=== PATIENT | male | born 1985 | race African-American/Black ===

== ENCOUNTER 2019-04-09 13:55 | Emergency (ER) | payer SELFPAY ==
[2019-04-09] MEDS ORDERED: LORazepam INJ* 2 MG/ML 1 ML VIAL IV PUSH ONE (14:41)
[2019-04-09] MEDS ORDERED: Lorazepam PYXIS KEY PRN (14:41)
[2019-04-09] MEDS ORDERED: NS 0.9% 1000 ML** 1,000 ML IV ONE (14:41)
[2019-04-09] MEDS ORDERED: Lorazepam PYXIS KEY ONE (14:47)
[2019-04-09 15:14] LABS: ABS Lymphocytes 0.3 10^3/ul (1.0-4.8); ABS Monocytes 0.8 10^3/ul (0-0.8); ABS Neutrophils 5.7 10^3/ul (1.5-7.7); Eosinophil % 0.2 %; Hematocrit 38 % (42-52); Lymphocyte % 4.8 %; Mean Corpuscular HGB Conc 34 g/dL (31-36); Mean Corpuscular Hemoglobin 33 pg (27-31); Mean Corpuscular Volume 97 fL (80-94); Mean Platelet Volume 8.6 fL (7.4-10.4); Platelet Count 142 10^3/uL (150-450); Red Blood Count 3.94 10^6 /uL (4.18-5.48); Red Cell Distribution Width 14 % (10-15); White Blood Count 6.8 10^3/uL (3.5-10.8)
--- NOTE | 2019-04-09 15:29 | ED ---
Complex/Multi-Sys Presentation - HPI Summary HPI Summary: Patient is a 34 y/o M presenting to the ED for a chief complaint of seizure on 04/09/19. Patient was lifting boxes into an apartment when he had the seizure. Patient was confused upon waking which has since resolved. Patient denies seizure in the past. Patient denies myalgia, headache, vision changes, nausea, vomiting, or weakness on one side of the body. Patient had a beer on 04/09/19 and 4 beers on 04/08/19. Patient feels he is in alcohol withdrawal. Patient admits tobacco and alcohol use, but denies drug use. Patient denies any PMHx, PSHx, or any medications. Patient works at [employer]. - History Of Current Complaint Chief Complaint: EDSeizure Time Seen by Provider: 04/09/19 14:32 Hx Obtained From: Patient Onset/Duration: Sudden Onset, Resolved Timing: Minutes Severity Currently: Moderate Severity Initially: Moderate Associated Signs And Symptoms: Positive: Confusion - Resolved, Syncope - Seizure , Other - Negative change in vision. Negative: Weakness - On one side of body, Headache, Nausea, Vomiting - Allergies/Home Medications Allergies/Adverse Reactions: Allergies Allergy/AdvReac Type Severity Reaction Status Date / Time No Known Allergies Allergy Verified 02/04/13 19:48 Home Medications: Home Medications NK [No Home Medications Reported] 04/09/19 [History Confirmed 04/09/19] PMH/Surg Hx/FS Hx/Imm Hx Previously Healthy: Yes Endocrine/Hematology History: Denies: Hx Diabetes Cardiovascular History: Denies: Hx Hypercholesterolemia, Hx Hypertension Sensory History: Denies: Hx Contacts or Glasses, Hx Legally Blind, Hx Deafness Opthamlomology History: Denies: Hx Contacts or Glasses, Hx Legally Blind EENT History: Denies: Hx Deafness - Surgical History Surgical History: None Surgery Procedure, Year, and Place: None - Immunization History Immunizations Up to Date: Yes Infectious Disease History: No Infectious Disease History: Denies: Traveled Outside the [place] in Last 30 Days - Family History Known Family History: Negative: Hypertension, Diabetes - Social History Occupation: Unemployed Lives: Alone Alcohol Use: Daily Alcohol Amount: 1-2/daily beers Hx Substance Use: No Substance Use Type: Reports: None Hx Tobacco Use: Yes Smoking Status (MU): Heavy Every Day Tobacco Smoker Review of Systems Positive: Other - Negative changes in vision Negative: Vomiting, Nausea Negative: Myalgia Neurological: Other - Positive seizure and confusion Positive: Syncope - Seizure. Negative: Headache, Weakness - On one side of body , Slurred Speech All Other Systems Reviewed And Are Negative: Yes Physical Exam - Summary Physical Exam Summary: Constitutional: Well-developed, Well-nourished, Alert. (-) Distressed Skin: Warm, Dry HENT: Normocephalic; Atraumatic Eyes: Conjunctiva normal Neck: Musculoskeletal ROM normal neck. (-) JVD, (-) Stridor, (-) Tracheal deviation Cardio: Rhythm regular, rate normal, Heart sounds normal; Intact distal pulses. Radial pulses are 2+ and symmetric. (-) Murmur Pulmonary/Chest wall: Effort normal. (-) Respiratory distress, (-) Wheezes, (-) Rales Abd: Soft. (-) Tenderness, (-) Distension, (-) Guarding, (-) Rebound Musculoskeletal: (-) Edema Lymph: (-) Cervical adenopathy Neuro: Alert, Oriented x3, Strength normal, Cranial nerves II-XII are grossly intact. (-) Dysmetria, (-) Nystagmus, (-) Ataxia by finger to nose testing, (-) Sensory deficit. Psych: Mood and affect Normal Triage Information Reviewed: Yes Vital Signs On Initial Exam: Initial Vitals Temp Pulse Resp BP Pulse Ox 100.7 F 105 18 168/83 98 04/09/19 14:00 04/09/19 14:00 04/09/19 14:00 04/09/19 14:00 04/09/19 14:00 Vital Signs Reviewed: Yes Procedures - Sedation Patient Received Moderate/Deep Sedation with Procedure: No Diagnostics - Vital Signs Vital Signs Temp Pulse Resp BP Pulse Ox 04/09/19 14:47 20 04/09/19 14:00 100.7 F 105 18 168/83 98 - Laboratory Lab Results: Lab Results 04/09/19 Range/Units 15:08 WBC 6.8 (3.5-10.8) 10^3/uL RBC 3.94 L (4.18-5.48) 10^6 /uL Hgb 13.0 L (14.0-18.0) g/dL Hct 38 L (42-52) % MCV 97 H (80-94) fL MCH 33 H (27-31) pg MCHC 34 (31-36) g/dL RDW 14 (10-15) % Plt Count 142 L (150-450) 10^3/uL MPV 8.6 (7.4-10.4) fL Neut % (Auto) 83.2 % Lymph % (Auto) 4.8 % [place] % (Auto) 11.5 % Eos % (Auto) 0.2 % Baso % (Auto) 0.3 % Absolute Neuts (auto) 5.7 (1.5-7.7) 10^3/ul Absolute Lymphs (auto) 0.3 L (1.0-4.8) 10^3/ul Absolute Monos (auto) 0.8 (0-0.8) 10^3/ul Absolute Eos (auto) 0.0 (0-0.6) 10^3/ul Absolute Basos (auto) 0.0 (0-0.2) 10^3/ul Absolute Nucleated RBC 0.0 10^3/ul Nucleated RBC % 0.0 Result Diagrams: 04/09/19 15:08 04/09/19 15:08 Lab Statement: Any lab studies that have been ordered have been reviewed, and results considered in the medical decision making process. Complex Multi-Symp Course/Dx Course Of Treatment: Patient is here with a seizure likely due to alcohol withdrawal. Patient does drink on a daily basis with his last drink yesterday. Patient was neurologically intact upon arrival. Patient did have tremors with his hands outstretched and was tachycardic. Was asked rethinks Laurae Caltagirone he said yes. Patient is given Ativan with improvement in his symptoms. Patient was encouraged not to drink and was discharged. - Diagnoses Provider Diagnoses: Seizure, Alcohol withdrawal Discharge ED - Sign-Out/Discharge Documenting (check all that apply): Patient Departure - Discharge - Discharge Plan Condition: Stable Disposition: HOME Patient Education Materials: Alcohol Withdrawal (ED) Referrals: [facility] [Outside] Catrachito Rausch MD [Medical Doctor] - Additional Instructions: Do not drink alcohol or do drugs. Follow up with a neurologist in 1-3 days. Return to the Emergency Department for any new or worsening symptoms. - Billing Disposition and Condition Condition: STABLE Disposition: Home - Attestation Statements Document Initiated by Desmonde: Yes Documenting Scribe: Shirin Rico Provider For Whom Scribe is Documenting (Include Credential): Gopal Bowen MD Scribe Attestation: IShirin, scribed for Gopal Bowen MD on 04/09/19 at 2115. Scribe Documentation Reviewed: Yes Provider Attestation: The documentation as recorded by the Shirin lyon accurately reflects the service I personally performed and the decisions made by me, Gopal Bowen MD Status of Scribe Document: Viewed
[2019-04-09 15:36] LABS: ALT 41 U/L (7-52); AST 48 U/L (13-39); Albumin 4.4 g/dL (3.2-5.2); Albumin/Globulin Ratio 1.6 (1-3); Alkaline Phosphatase 46 U/L (34-104); Anion Gap 7 mmol/L (2-11); BUN/Creatinine Ratio 10.3 (8-20); Blood Urea Nitrogen 7 mg/dL (6-24); CO2 Carbon Dioxide 23 mmol/L (22-32); Calcium 9.2 mg/dL (8.6-10.3); Chloride 105 mmol/L (101-111); EGFR African American 162.5 (>60); EGFR Non-African American 134.3 (>60); Globulin 2.8 g/dL (2-4); Glucose 105 mg/dL (70-100); Magnesium 1.9 mg/dL (1.9-2.7); Potassium 3.9 mmol/L (3.5-5.0); Sodium 135 mmol/L (135-145); Total Protein 7.2 g/dL (6.4-8.9)
[2019-04-09 15:40] VITALS: BP 155/86
[2019-04-09 16:05] LABS: Alcohol < 10 mg/dL (<10)
== END 2019-04-09 15:40 | disposition home or self-care (01) ==
LOC: ED 13:55
DX: R56.9 Unspecified convulsions (principal); F10.239 Alcohol dependence with withdrawal, unspecified; F17.200 Nicotine dependence, unspecified, uncomplicated
CPT/HCPCS: 36415; 80053; 80320; 83735; 85025; 96361; 96374; 99282; G0480; J2060

== ENCOUNTER 2019-07-02 12:52 | Inpatient (IN) | payer SELFPAY ==
[2019-07-02] MEDS ORDERED: Midazolam* 1 MG/ML 5 ML VIAL (5 MG) ONE (15:11)
[2019-07-02] MEDS ORDERED: Diazepam INJ CARPUJECT* 5 MG/ML ONE (15:12)
[2019-07-02 15:14] LABS: ABS Basophils 0.1 10^3/ul (0-0.2); ABS Lymphocytes 0.4 10^3/ul (1.0-4.8); ABS Monocytes 1.3 10^3/ul (0-0.8); ABS Neutrophils 5.3 10^3/ul (1.5-7.7); Eosinophil % 0.2 %; Hematocrit 43 % (42-52); Hemoglobin 14.8 g/dL (14.0-18.0); Lymphocyte % 5.9 %; Mean Corpuscular HGB Conc 35 g/dL (31-36); Mean Corpuscular Hemoglobin 34 pg (27-31); Mean Corpuscular Volume 98 fL (80-94); Mean Platelet Volume 8.7 fL (7.4-10.4); Platelet Count 199 10^3/uL (150-450); Red Cell Distribution Width 14 % (10-15); White Blood Count 7.1 10^3/uL (3.5-10.8)
[2019-07-02] MEDS ORDERED: Diazepam INJ CARPUJECT* 5 MG/ML IM ONE (15:20)
[2019-07-02] MEDS ORDERED: Midazolam* 1 MG/ML 5 ML VIAL (5 MG) IV SLOW PU ONE (15:24)
[2019-07-02 15:35] LABS: Albumin/Globulin Ratio 1.5 (1-3); BUN/Creatinine Ratio 12.1 (8-20); EGFR African American 168.2 (>60); Globulin 3.3 g/dL (2-4); Potassium 3.9 mmol/L (3.5-5.0); Total Bilirubin 0.6 mg/dL (0.2-1.0); Total Protein 8.3 g/dL (6.4-8.9)
[2019-07-02] MEDS ORDERED: Thiamine INJ* 100 MG, Folic Acid IV* 1 MG, Multiple Vitamin IV ADULT* 10 ML in NS 0.9% ... IV ONE (15:44)
[2019-07-02] MEDS ORDERED: Thiamine INJ* 100 MG/ML 2 ML VIAL IM ONE (17:21)
[2019-07-02] MEDS ORDERED: Acetaminophen TAB* 325 MG PO PRN ×2 (17:21→18:01)
--- NOTE | 2019-07-02 17:21 | ED ---
Seizure - HPI Summary HPI Summary: This patient is a 34-year-old male with history of alcohol abuse presenting to the ED with a "drunken fall." Patient states he recalls nothing from last night , but drinks several beers and some tequila and believes he fell on his face. He does not recall falling on his face and denies any headache at this time. Per family however, patient drinks heavily every night and is concerned this morning was a seizure. He did have one seizure back in March and was seen here in the ED. At that time they were unaware if this was new onset seizures or alcohol-related seizures. Patient does not have health insurance and so did not follow up with neurology. He also has not been on any medication. He states he believes this is not alcohol related as he has had several days at a time without drinking any alcohol and has not had any evidence of seizure. Per girlfriend at bedside, states patient has been having insomnia and anxiety symptoms which have been present times several months to years. Patient denies any pain at this time. He takes no medications. He has no known allergies. He is otherwise healthy. - History Of Current Complaint Chief Complaint: EDFacialInjury Time Seen by Provider: 07/02/19 12:52 Hx Obtained From: Patient Onset/Duration: Sudden Onset Severity Of Seizure: Self-Limited Aggravating Factor(s): Alcohol Ingestion, Alcohol Withdrawal Alleviating Factor(s): Spontaneous Resolution Associated Signs And Symptoms: Anxiety - Risk Factors SAH Risk Factors: Negative Meningitis Risk Factors: Negative SDH Risk Factor: Male, Seizures - Allergies/Home Medications Allergies/Adverse Reactions: Allergies Allergy/AdvReac Type Severity Reaction Status Date / Time No Known Allergies Allergy Verified 02/04/13 19:48 PMH/Surg Hx/FS Hx/Imm Hx Previously Healthy: Yes Endocrine/Hematology History: Denies: Hx Diabetes Cardiovascular History: Denies: Hx Hypercholesterolemia, Hx Hypertension Sensory History: Denies: Hx Contacts or Glasses, Hx Legally Blind, Hx Deafness Opthamlomology History: Denies: Hx Contacts or Glasses, Hx Legally Blind - Surgical History Surgery Procedure, Year, and Place: None - Immunization History Hx Pertussis Vaccination: No Immunizations Up to Date: Yes Infectious Disease History: No Infectious Disease History: Denies: Traveled Outside the [place] in Last 30 Days - Family History Known Family History: Negative: Hypertension, Diabetes - Social History Occupation: Employed Full-time Lives: With Family Alcohol Use: Daily Alcohol Amount: 1-2/daily beers Hx Substance Use: No Substance Use Type: Reports: None Hx Tobacco Use: Yes Smoking Status (MU): Heavy Every Day Tobacco Smoker Review of Systems Negative: Fever, Chills, Fatigue, Skin Diaphoresis Negative: Palpitations, Chest Pain Negative: Shortness Of Breath, Cough Genitourinary: Negative Positive: no symptoms reported, see HPI Positive: Other - 3 lacerations Positive: Headache Positive: Anxious All Other Systems Reviewed And Are Negative: Yes Physical Exam Triage Information Reviewed: Yes Vital Signs On Initial Exam: Initial Vitals Pulse Pulse Ox 115 98 07/02/19 12:56 07/02/19 12:56 Vital Signs Reviewed: Yes Appearance: Positive: Well-Appearing, Well-Nourished Skin: Positive: Skin Color Reflects Adequate Perfusion, Other - laceration to the forehead and to the bridge of the nose, laceration to the inner lip Head/Face: Positive: Normal Head/Face Inspection Eyes: Positive: EOMI, Conjunctiva Clear Neck: Positive: No Lymphadenopathy Respiratory/Lung Sounds: Positive: Clear to Auscultation, Breath Sounds Present Cardiovascular: Positive: Pulses are Symmetrical in both Upper and Lower Extremities Musculoskeletal: Positive: Normal, Strength/ROM Intact Neurological: Positive: Sensory/Motor Intact, Alert, Oriented to Person Place, Time, Slurred Speech Psychiatric: Positive: Affect/Mood Appropriate AVPU Assessment: Alert Procedures - Sedation Patient Received Moderate/Deep Sedation with Procedure: No Diagnostics - Vital Signs Vital Signs Temp Pulse Resp BP Pulse Ox 07/02/19 13:00 118 98 07/02/19 12:58 99.5 F 119 23 192/100 98 07/02/19 12:56 115 98 - Laboratory Lab Results: Lab Results 07/02/19 07/02/19 Range/Units 14:56 14:56 WBC 7.1 (3.5-10.8) 10^3/uL RBC 4.40 (4.18-5.48) 10^6 /uL Hgb 14.8 (14.0-18.0) g/dL Hct 43 (42-52) % MCV 98 H (80-94) fL MCH 34 H (27-31) pg MCHC 35 (31-36) g/dL RDW 14 (10-15) % Plt Count 199 (150-450) 10^3/uL MPV 8.7 (7.4-10.4) fL Neut % (Auto) 74.9 % Lymph % (Auto) 5.9 % [place] % (Auto) 18.2 % Eos % (Auto) 0.2 % Baso % (Auto) 0.8 % Absolute Neuts (auto) 5.3 (1.5-7.7) 10^3/ul Absolute Lymphs (auto) 0.4 L (1.0-4.8) 10^3/ul Absolute Monos (auto) 1.3 H (0-0.8) 10^3/ul Absolute Eos (auto) 0.0 (0-0.6) 10^3/ul Absolute Basos (auto) 0.1 (0-0.2) 10^3/ul Absolute Nucleated RBC 0.0 10^3/ul Nucleated RBC % 0.0 Sodium 132 L (135-145) mmol/L Potassium 3.9 (3.5-5.0) mmol/L Chloride 97 L (101-111) mmol/L Carbon Dioxide 25 (22-32) mmol/L Anion Gap 10 (2-11) mmol/L BUN 8 (6-24) mg/dL Creatinine 0.66 L (0.67-1.17) mg/dL Est GFR ( Amer) 168.2 (>60) Est GFR (Non-Af Amer) 139.0 (>60) BUN/Creatinine Ratio 12.1 (8-20) Glucose 103 H (70-100) mg/dL Calcium 10.0 (8.6-10.3) mg/dL Magnesium 2.0 (1.9-2.7) mg/dL Total Bilirubin 0.60 (0.2-1.0) mg/dL AST 60 H (13-39) U/L ALT 78 H (7-52) U/L Alkaline Phosphatase 56 (34-104) U/L Total Protein 8.3 (6.4-8.9) g/dL Albumin 5.0 (3.2-5.2) g/dL Globulin 3.3 (2-4) g/dL Albumin/Globulin Ratio 1.5 (1-3) Serum Alcohol 19 H (<10) mg/dL Result Diagrams: 07/02/19 14:56 07/02/19 14:56 Lab Statement: Any lab studies that have been ordered have been reviewed, and results considered in the medical decision making process. Course/Dx - Course Course Of Treatment: During this course of treatment, the patient was initially treated for a possible fall from alcohol use. Patient has a 2.5 cm laceration to the left side of the forehead, a 1cm laceration to the L side of the nasal bridge and a .6cm laceration to the inner upper lip. Patient has no evidence of trauma to the body otherwise. Denies any headache or neck pain. Patient appears confused and states he is "still drunk." He states he recalls nothing from this morning and is unsure if he fell or had other trauma that he is unaware of. CT brain and maxillofacial were obtained, both were negative for any acute findings. Lacerations were cleansed well. Lidocaine without epi used as local anesthetic with good effect. 5, 5-0 proline sutures placed to the left side of the forehead, 2, 5-0 sutures placed to the lateral bridge of the nose. 3 dissolvable braided vicryl placed inside the lip to the subcutaneous fat with good closure. Family arrives at this time with concern for a seizure. Labs were drawn. While pending, pt actively has seizure with provider at bedside. O2 applied. 5mg versed given. Post-ictal x 20 minutes. Pt recovers well. Banana bag given. Rechecked sutures and all intact. Alcohol level 19. Discussed with Dr. Krishnamurthy recommending admission for safe detox. Will not start keppra at this time as this likely alcohol related. Pt agreeable to stay. Re-examination with no laceration to tongue. Patient otherwise well. Re-exam shows WAM at 4. Pt will be carefully monitored and placed on WAM protocol. SW called for health insurance information, etc. Discussed with Dr Bo who will admit for further evaluation and alcohol related seizures and detox. Tetanus UTD. - Diagnoses Differential Diagnosis/HQI/PQRI: Positive: Alcohol Abuse, Alcohol Withdrawal, Drug Withdrawal, Other - alcohol abuse, fall, seizures Provider Diagnoses: Alcohol withdrawal, Seizures - Physician Notifications Discussed Care of Patient With: Kenroy Krishnamurthy Instructed by Provider To: Admit As Inpatient Discharge ED - Sign-Out/Discharge Documenting (check all that apply): Patient Departure - Discharge Plan Condition: Fair Disposition: ADMITTED TO [facility] Referrals: No Primary Care Phys,NOPCP [Primary Care Provider] - - Billing Disposition and Condition Condition: FAIR Disposition: Admitted to [facility] - Attestation Statements Provider Attestation: I was available for consult. This patient was seen by the KORI. The patient was not presented to, seen by, or examined by me. Gopal Bowen MD
--- NOTE | 2019-07-02 20:17 | HP ---
CC: Dr. Krishnamurthy * HISTORY AND PHYSICAL: DATE OF ADMISSION: 07/02/19 PROVIDER: Batsheva Hogan NP PRIMARY CARE PROVIDER: None. ATTENDING PHYSICIAN WHILE IN THE HOSPITAL: Dr. Zenaida Salazar * (dictated by Batsheva Hogan NP). CHIEF COMPLAINT: 1. Fall. 2. Seizure. 3. Alcohol withdrawal. HISTORY OF PRESENT ILLNESS: Mr. Casas is a 34-year-old male with a past medical history significant for alcohol abuse, who presented to the emergency room with a drunken fall. The patient states he recalls nothing from the events of last night. The patient reports that he drank 9, 12-ounce cans of [place]. The patient reports that he could possibly have had a seizure, but is unsure. The patient reports the last thing he remembers is sitting on the couch between 11:30 and 12 p.m. last night with a [place] in his hand. The next thing he remembers is being in the ambulance on the way to the emergency room. According to the emergency room record, the family was concerned that this was an alcohol withdrawal seizure. The patient had a similar episode back in March. He was seen in the emergency room at that time he had the seizure, unaware if it was related to alcohol. The patient did not have any health insurance, so he did not follow up with Neurology. The patient has not been on any medications for any seizures. The patient states he believes this is not alcohol related as he can go several days at a time without drinking any alcohol and has not had any seizures. According to the emergency room record, the girlfriend reports the patient has had insomnia and anxiety and difficulty sleeping for approximately a year. The patient reports that he drinks Natty Daddy 16-ounce cans 4 to 5 of them daily. The patient reports that he starts drinking approximately 1 hour after waking. The patient reports that he drinks every day. He generally does not go out without drinking. He reports that he has been doing this for several years. While in the emergency room, the patient did have lacerations repaired to his head. He had a CT of the brain and maxillofacial that were negative for any acute findings. When family arrived, they were concerned for seizures. So, the lab work was drawn. While the lab work was pending, the patient had a seizure with the provider at the bedside. He was given 5 mg Versed. He was postictal for approximately 20 minutes and the case was discussed with Dr. Krishnamurthy. Due to the patient's seizure likely related to alcohol withdrawal, Hospital Medicine was asked to see and evaluate him for admission. PAST MEDICAL HISTORY: Alcohol abuse. PAST SURGICAL HISTORY: None. MEDICATIONS: Home medications: None. ALLERGIES: No known drug allergies. FAMILY HISTORY: Mother with abdominal aortic aneurysm and TIAs at the age of 42. No diabetes. Sister with skin cancer. SOCIAL HISTORY: The patient reports he smokes 3 to 4 cigarettes daily. He drinks Natty Daddy four to five 16-ounce cans of 8% alcohol daily, sometimes Tequila. No illicit drug use. The patient lives alone. Surrogate decision maker in the event he is unable to make his own decisions is his sister, Shanna. He is a full code. REVIEW OF SYSTEMS: He denies any recent illness, fever, chills, unintended weight loss, chest pain, edema, cough, hemoptysis or shortness of breath. No nausea, vomiting, diarrhea, abdominal pain, hematuria, dysuria. Denies any focal weakness, sensory loss, dysphagia, arthralgias, myalgias, rashes. He does have a laceration noted to his left eyebrow and his left forehead with dressing that is intact. Denies any psychosis or anxiety. PHYSICAL EXAMINATION GENERAL: At this time, Mr. Casas is alert and oriented. Resting on the stretcher in the emergency room. He is in no acute distress. VITAL SIGNS: Blood pressure 129/94, heart rate 99, respirations are 25, O2 saturation 98% on room air, temperature was 99.5. HEENT: Head is atraumatic, normocephalic. Eyes, EOMs are intact. Sclerae anicteric and not pale. Oral mucosa is moist. NECK: Supple. He has no C-spine tenderness. He is able to to move his head freely without any pain. LUNGS: Clear to auscultation bilaterally. No wheezes, rales, or rhonchi. CARDIAC: S1, S2. Regular rate and rhythm. No murmurs, rubs or gallops. ABDOMEN: Soft and nontender. Bowel sounds are present x4. NEUROLOGIC: He is awake, alert and oriented x3. Speech is clear. There is no gross focal deficit. SKIN: He does have a sutured laceration to his left eyebrow and left forehead. DIAGNOSTIC STUDIES/LAB DATA: WBCs are 7.1, RBCs 4.40, hemoglobin 14.8, hematocrit 43, platelet count 199. Sodium 132, potassium 3.9, chloride 97, carbon dioxide is 25, anion gap is 10, BUN is 8, creatinine 0.66, glucose 103, calcium 10.0, magnesium 2. Total bilirubin 0.60, ASTs were 60, ALTs were 78, serum alcohol was 19. He had a CT of the brain, no acute intracranial pathology. He had maxillofacial CT. No facial fracture. ASSESSMENT AND PLAN: Mr. Casas is a 34-year-old male with a past medical history significant for alcohol abuse, who presented to the emergency room after questionable alcohol withdrawal seizure and facial lacerations, noted to have a witnessed seizure in the emergency room. Due to the patient's withdrawal symptoms and seizures, Hospital Medicine was asked to admit to the hospital. The patient will be admitted inpatient for: 1. Alcohol abuse. The patient is likely having seizures related to alcohol withdrawal. He will be monitored on telemetry on [address] [place] [address] him on seizure precautions. He will be placed on WAM protocol with tapering Ativan and subsequent Ativan as needed for scoring on WAM. The patient is currently receiving a banana bag. I will continue him on folic acid, thiamine, and multivitamin. 2. Seizure. The patient did have a witnessed seizure in the emergency room. This is likely related to alcohol withdrawal. The patient will be placed on WAM protocol with tapering Ativan. I have spoken to Dr. Juan Luis Krishnamurthy from Neurology at this time, who has recommended an MRI of the brain and an EEG and not to place the patient on any antiseizure medications at this time and to treat his alcohol withdrawal symptoms. Should the patient have subsequent episodes of seizures, Dr. Krishnamurthy would like to be contacted. 3. Hyponatremia. The patient does have mild hyponatremia. I suspect this is related to his alcohol abuse. 4. Elevated liver functions. He does have mildly elevated liver functions. Again, I suspect this is related to his alcohol abuse. 3. FEN: He can have a regular diet. 4. Code status: He is a full code. 5. DVT prophylaxis: Encourage ambulation. 6. Disposition: The patient will be placed inpatient on [address]. TIME SPENT: Time spent on this admission was 60 minutes. Greater than half that time was spent at the bedside reviewing events leading thus far to his hospitalization, performing physical exam and reviewing my plan of care. I have discussed with my attending Dr. Zenaida Salazar, she is in agreement with my plan. BATSHEVA HOGAN, KWABENA [id number]/CPS #: [id number] [facility]ITALEstefania
[2019-07-02] MEDS: LORazepam TAB(*) 1 MG PO SCH ×3 (20:42→22:39)
[2019-07-02] MEDS ORDERED: cloNIDine TAB* 0.1 MG PO ONE (23:29)
[2019-07-03] MEDS: LORazepam TAB(*) 1 MG PO SCH ×3 (03:10→23:45)
[2019-07-03 06:43] LABS: Hematocrit 43 % (42-52); Mean Corpuscular HGB Conc 35 g/dL (31-36); Mean Corpuscular Hemoglobin 34 pg (27-31); Mean Corpuscular Volume 98 fL (80-94); Mean Platelet Volume 9.3 fL (7.4-10.4); Platelet Count 211 10^3/uL (150-450); Red Blood Count 4.38 10^6 /uL (4.18-5.48); Red Cell Distribution Width 14 % (10-15); White Blood Count 10.6 10^3/uL (3.5-10.8)
[2019-07-03 06:52] LABS: ABS Lymphocytes 0.9 10^3/ul (1.0-4.8); ABS Monocytes 1.8 10^3/ul (0-0.8); ABS Neutrophils 7.9 10^3/ul (1.5-7.7); Eosinophil % 0.2 %; Lymphocyte % 8.2 %; Nucleated Red Blood Cells % 0.1
[2019-07-03 07:16] LABS: BUN/Creatinine Ratio 11.1 (8-20); Calcium 9.9 mg/dL (8.6-10.3); EGFR African American 132.8 (>60); EGFR Non-African American 109.7 (>60); Potassium 4.5 mmol/L (3.5-5.0)
[2019-07-03] MEDS ORDERED: Folic Acid TAB* 1 MG PO SCH (09:00)
[2019-07-03] MEDS ORDERED: cloNIDine TAB* 0.1 MG PO SCH (09:00)
[2019-07-03] MEDS ORDERED: Thiamine TAB* 100 MG TAB PO SCH (09:00)
[2019-07-03] MEDS ORDERED: Influenza VAC *QUAD* 2019-20* 0.5 ML SYRINGE IM ONE (09:00)
[2019-07-03] MEDS ORDERED: Multivitamins/Minerals TAB PO SCH (09:00)
[2019-07-03] MEDS: Multivitamins/Minerals TAB PO SCH (09:45)
[2019-07-03] MEDS: Folic Acid TAB* 1 MG PO SCH (09:45)
[2019-07-03] MEDS: Thiamine TAB* 100 MG TAB PO SCH (09:46)
--- NOTE | 2019-07-03 11:39 | CONS ---
CONSULTATION REPORT: DATE OF CONSULTATION: 07/03/19 PRIMARY CARE PROVIDER: None. REASON FOR CONSULTATION: Seizures. HISTORY OF PRESENT ILLNESS: Mr. Casas is a 34-year-old gentleman with past medical history significant for heavy alcohol use, otherwise negative, who presents to the hospital yesterday after having a seizure at home, subsequently followed by a seizure in the ER. He has no recollection of the event yesterday and states he remembers waking up in the ambulance at one point, but was confused. He denies any tongue biting, any bladder or bowel incontinence, but did have some postictal confusion. He also fell and hit his face and has a large contusion on his left lip. The patient also reports a history of a seizure-like episode back in March 2019 around [facility]. At that point, he was helping a relative move when he "passed out." Both of these events were witnessed. The event in March 2019 is less well described, but the event yesterday he stood up and "went down" over a table and apparently there was some generalized tonic-clonic activity. In addition, there was reported generalized tonic-clonic activity in the ER. In the ER, he was given Versed 5 mg, was confused for about 20 minutes. Importantly, the patient notes a history of heavy alcohol use. He has been drinking "for a long time." He notes that at the time of the event in March 2019 as well as yesterday, he had been drinking heavily. He reports drinking at least a 6-pack a day. He denies any hard liquor. His girlfriend also reported that he had been having some insomnia for approximately a year and does not drink well. It was reported that he drinks 16-ounce cans of beer and he drinks a 6-pack of those, so he is drinking heavily. He said yesterday he had about 2 beers before he had the episode. He also notes that at the time of the episode in March 2019 he had stopped drinking for a couple of days so that he could "be strong to help his relative move." He has a mother with a history of a seizure at around the time of an abdominal aortic aneurysm and strokes, she . Also has a sister with a history of seizures in the past, but not treated and on no medication. The patient denies any history of trauma or issues , no history of severe head trauma, no history of meningitis, no history of febrile seizures and is only aware of these 2 events. He reports drinking for at least 2 years prior to today. The patient does note history of prior tremors and palpitations when he would stop drinking. PAST MEDICAL HISTORY: Includes alcohol use. PAST SURGICAL HISTORY: Negative. MEDICATIONS: He is not on any home medications. ALLERGIES: He has no known drug allergies. FAMILY HISTORY: Sister is noted with a history of seizures in the distant past , no medication, and mother with a seizure at the time of her abdominal aortic aneurysm and she at that time. SOCIAL HISTORY: He does smoke tobacco occasionally, 3 to 4 cigarettes daily. Drinks the 16-ounce cans of beer daily. He reported some tequila use to the ER doc, but denied any hard liquor use with me. He denies any cocaine or tobacco use or other illicit substances. He has a girlfriend who witnessed the seizure yesterday and a sister at the bedside today. REVIEW OF SYSTEMS: Review of systems in 14 organ systems as noted above. The patient denies any recent fevers, chills, nausea, vomiting, diarrhea, constipation. No recent shortness of breath, hemoptysis, hematochezia. No recent chest pain. No myalgias or arthralgias. No recent animal bites or tick bites. He has had no problems swallowing. He notes no problems with change of voice, no problems with focal numbness, tingling, or weakness in his body. No prior falls. Seizure yesterday. PHYSICAL EXAMINATION: Vital Signs: Temperature of 98.8, pulse 99 to 110, respiratory rate 16 to 20, O2 saturation 94%, blood pressure 128/79 to 132/84. The patient is a well-nourished, well-developed gentleman in no acute distress. He is sitting in his hospital bed with his sister at the bedside. He is well dressed, well groomed. HEENT: He has a large laceration over the left forehead repaired and a lip laceration on the left. Sclerae are anicteric. Mucous membranes are moist. Oropharynx is clear. He has good dentition. Neck is supple. No thyromegaly. No carotid bruits. Chest: Clear to auscultation bilaterally. Cardiovascular: Tachycardic, regular rhythm. Abdomen is nontender. Extremities: No clubbing, cyanosis, or edema. Skin is warm and dry. Neurologic Exam: He is awake, alert x3. This morning, his speech is fluent. There is no dysarthria. Repetition is intact. Recall is somewhat impaired around the time of the seizure yesterday. Vocabulary is intact. Mood is dysthymic. Affect mood congruent. Cranial Nerves: Pupils are equal and round and reactive to light and accommodation. Extraocular muscles are intact. There is no nystagmus appreciated. No diplopia appreciated. Visual byrne are full to confrontation. Facial sensation is intact to light touch and pinprick. Face is symmetric with some swelling in the left lip. Hearing is intact bilaterally. Palate raises symmetrically. Tongue is midline. Motor Exam: He is moving all extremities antigravity, no drift. His strength is good 5/5 throughout. There is no atrophy. Tone and bulk both normal. Sensation is intact to light touch and pinprick throughout. No focal deficits. DTRs were 2+ and symmetric in the upper and lower extremities as well as withdrawal Babinski's bilaterally. [id number] and rapid alternating movements are intact. There is no appreciable tremor with intention, posture, or at rest. He has been ambulating without difficulty. DIAGNOSTIC STUDIES/LAB DATA: Includes white count of 10.6, absolute neutrophils of 7.9. Chemistry: Creatinine of 0.66, sodium of 132 to 135 this morning, AST of 60, ALT of 78, serum alcohol yesterday was 19. He had an MRI of the brain, I did review the results. Reading is as follows: Impression: 1. No acute intracranial abnormality. 2. 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 ASSESSMENT AND PLAN: Mr. Casas is a 34-year-old gentleman with no significant past medical history other than heavy alcohol use for years. He has had 2 episodes, which are consistent with seizures, one in March 2019 and then the episode yesterday. Semiology is consistent with generalized tonic-colonic seizure. In the ER, received Versed at the postictal state, no tongue biting, no bladder or bowel incontinence. The patient does drink heavily, reports drinking at least five to six 16-ounce beers a day and reported some hard liquor use to the ER doctor, although he denies that with me. His alcohol level yesterday was 19 and he did report drinking heavily the day before his event yesterday. He only had 2 beers at the time of his seizure. In March 2019, he also reports that he had been off of alcohol for several days to help with a move. He also reports a history of having tremors and palpitations when he did not drink, but no prior withdrawal seizures. At this point, my suspicion is that he is suffering from withdrawal seizures, that these were provoked. I would not treat with medications at this time, although an EEG is pending. If that shows any seizure like or epileptiform potentials, we will reconsider, but for now I would not treat with any medication. He had a mild Dandy- Walker like abnormality on his MRI, but I do not think it is contributing to any of his seizures. He has no other symptoms and has been healthy with good developmental history. We had a very long discussion about his alcohol use. I told him that if he continues to drink, he is likely to have another seizure and this could result ultimately in if he is not careful. I did tell him to avoid heights, avoid heavy machinery, to avoid swimming alone, to avoid baths and only take showers, to stay away from open flames and he is aware that he is not able to drive at this point. I discussed the fact that in [facility] the restrictions can be up to a year and that he will need to follow up with me to fill out the appropriate paperwork. Most importantly, we discussed provoked seizures. I told him in no uncertain terms that should he continue to drink, he will likely have seizures again. For now, I would continue him on his current medications. He is on clonidine 1 mg p.o. t.i.d. for blood pressure control. He is on folic acid and thiamine as well as banana bag. He is getting scheduled lorazepam as well as p.r.n. lorazepam and will be following [facility] protocol. At one point, he asked me if he could stop drinking slowly and I told him that this was his detox during the hospitalization and once he is detoxed during his hospitalization he will need to stay away from alcohol altogether. I advised that he should seek treatment program. His family at the bedside is very concerned and plans to help him. I will sign off for now, but if the EEG shows any abnormalities, please let me know, otherwise plan to see him back as an outpatient. Thank you for the opportunity to participate in the care of this very interesting patient. [id number]/[facility] #: [id number] [place]
--- NOTE | 2019-07-03 17:17 | PN ---
Subjective Date of Service: 07/03/19 Interval History: HOSPITALIST PROGRESS NOTE Patient seen and examined at bedside. Care reviewed and d/w Heena Morel RN. He is feeling better this morning, surrounded by many family members. He denies S[place], N/V. Still has some tremors, but less intense than yesterday. Family History: Unchanged from Admission Social History: Unchanged from Admission Past Medical History: Unchanged from Admission Objective Active Medications: Acetaminophen (Tylenol Tab*) 650 mg PO Q4H PRN PRN Reason: MILD PAIN or TEMP > 100.4 Folic Acid (Folvite Tab*) 1 mg PO DAILY [facility] Last Admin: 07/03/19 09:45 Dose: 1 mg Lorazepam (Ativan Tab(*)) 0 - 6 mg PO .PER [facility] PROTOCOL [facility]; Protocol Last Admin: 07/02/19 22:39 Dose: 4 mg Lorazepam (Ativan Tab(*)) 2 mg PO Q12H [facility]; Taper Stop: 07/05/19 14:59 Last Admin: 07/03/19 11:23 Dose: 2 mg Multivitamins/Minerals (Theragran/Minerals Tab*) 1 tab PO DAILY [facility] Last Admin: 07/03/19 09:45 Dose: 1 tab Thiamine HCl (Vitamin B-1 Tab*) 100 mg PO DAILY [facility] Last Admin: 07/03/19 09:46 Dose: 100 mg Vital Signs - 8 hr 07/03/19 07/03/19 07/03/19 11:00 11:15 11:23 Temperature 98.9 F Pulse Rate 105 Respiratory 18 20 18 Rate Blood Pressure 133/85 (mmHg) O2 Sat by Pulse 100 Oximetry 07/03/19 07/03/19 07/03/19 13:28 15:00 15:15 Temperature 98.5 F Pulse Rate 98 Respiratory 20 20 20 Rate Blood Pressure 129/78 (mmHg) O2 Sat by Pulse 100 Oximetry Oxygen Devices in Use Now: None Appearance: Young gentleman sitting up in bed in NAD Eyes: No Scleral Icterus, PERRLA Ears/Nose/Mouth/Throat: Mucous Membranes Moist, - - Multiple small facial lacerations Neck: Trachea Midline Respiratory: Symmetrical Chest Expansion and Respiratory Effort, Clear to Auscultation Cardiovascular: NL Sounds; No Murmurs; No JVD, RRR Abdominal: NL Sounds; No Tenderness; No Distention Extremities: No Edema Neurological: Alert and Oriented x 3, NL Muscle Strength and Tone Result Diagrams: 07/03/19 05:53 07/03/19 05:53 Assess/Plan/Problems-Billing Assessment: Mr Casas is a 34yo M with PMH of ETOH abuse, who presented to ED after a seizure at home; had another seizure in the ED, suspected to be ETOH withdrawal seizure. - Patient Problems (1) Alcohol withdrawal Comment: - Patient drinks 4-5 16oz beers/day, plus tequila shots. - Had a seizure in March thought to be secondary to withdrawal, but he unfortunately continued to drink. - Continue WAM protocol and Ativan taper. - Lengthy conversation with patient and family members at bedside - my recommendation is for inpatient rehab after he completes his detox. - SW consult requested. (2) Seizure Comment: - Recurrent, but in the setting of ETOH withdrawal. - Neuro input appreciated - CT and MRI brain reviewed. EEG showed benzodiazepine effects but no epileptiform discharges. As long as he doesn't have further recurrence, would not recommend antiepileptic drugs for now. - Seizure precautions. (3) Hyponatremia Comment: - Secondary to ETOH - resolved. (4) DVT prophylaxis Comment: - SCD. (5) Full code status Status and Disposition: Inpatient. Sisters, nieces, daughter and SO updated at bedside.
--- NOTE | 2019-07-03 22:08 | EEG ---
ELECTROENCEPHALOGRAPHY: DATE OF STUDY: 07/03/19 REFERRING PROVIDER: Batsheva Hogan NP LOCATION: He is an inpatient in room 407. CLINICAL PROBLEM: Recent episodes of seizures. History of alcohol abuse disorder. MEDICATIONS: Include lorazepam and vitamins. REPORT: This 19-channel EEG is remarkable for abundant diffuse beta-rhythms. The patient is clinically awake. Activation procedures are not attempted. Sleep stages are not recognized. There are no clinical events. There are no focal, lateralized, or epileptiform abnormalities. CLINICAL IMPRESSION: Abnormal EEG due to excessive beta rhythms consistent with benzodiazepine drug effect. There are no epileptiform features to this recording. [id number]/[facility] #: [id number] [facility]
[2019-07-04] MEDS: Thiamine TAB* 100 MG TAB PO SCH (07:54)
[2019-07-04] MEDS: Folic Acid TAB* 1 MG PO SCH (07:54)
[2019-07-04] MEDS: Multivitamins/Minerals TAB PO SCH (07:55)
[2019-07-04] MEDS: LORazepam TAB(*) 1 MG PO SCH ×2 (11:34→23:29)
--- NOTE | 2019-07-04 16:02 | PN ---
Subjective Date of Service: 07/04/19 Interval History: HOSPITALIST PROGRESS NOTE Patient seen and examined at bedside. Care reviewed and d/w Lala Ramirez RN. He feels better today, in good spirits. He feels steadier on his feet, tremors are less intense. No further seizures. Family History: Unchanged from Admission Social History: Unchanged from Admission Past Medical History: Unchanged from Admission Objective Active Medications: Acetaminophen (Tylenol Tab*) 650 mg PO Q4H PRN PRN Reason: MILD PAIN or TEMP > 100.4 Folic Acid (Folvite Tab*) 1 mg PO DAILY [facility] Last Admin: 07/04/19 07:54 Dose: 1 mg Lorazepam (Ativan Tab(*)) 0 - 6 mg PO .PER [facility] PROTOCOL [facility]; Protocol Last Admin: 07/02/19 22:39 Dose: 4 mg Lorazepam (Ativan Tab(*)) 2 mg PO Q12H [facility]; Taper Stop: 07/05/19 14:59 Last Admin: 07/04/19 11:34 Dose: 2 mg Multivitamins/Minerals (Theragran/Minerals Tab*) 1 tab PO DAILY [facility] Last Admin: 07/04/19 07:55 Dose: 1 tab Thiamine HCl (Vitamin B-1 Tab*) 100 mg PO DAILY [facility] Last Admin: 07/04/19 07:54 Dose: 100 mg Vital Signs - 8 hr 07/04/19 07/04/19 07/04/19 09:15 11:34 12:45 Temperature 97.4 F 98.4 F Pulse Rate 92 103 Respiratory 18 18 14 Rate Blood Pressure 130/83 143/87 (mmHg) O2 Sat by Pulse 99 100 Oximetry Oxygen Devices in Use Now: None Appearance: Pleasant young gentleman sitting up in bed in NAD. Eyes: No Scleral Icterus Ears/Nose/Mouth/Throat: Mucous Membranes Moist Neck: Trachea Midline Respiratory: Symmetrical Chest Expansion and Respiratory Effort, Clear to Auscultation Cardiovascular: NL Sounds; No Murmurs; No JVD, RRR Abdominal: NL Sounds; No Tenderness; No Distention Neurological: Alert and Oriented x 3, NL Muscle Strength and Tone Result Diagrams: 07/03/19 05:53 07/03/19 05:53 Assess/Plan/Problems-Billing Assessment: Mr Casas is a 34yo M with PMH of ETOH abuse, who presented to ED after a seizure at home; had another seizure in the ED, suspected to be ETOH withdrawal seizure. - Patient Problems (1) Alcohol withdrawal Comment: - Patient drinks 4-5 16oz beers/day, plus tequila shots. - Had a seizure in March thought to be secondary to withdrawal, but he unfortunately continued to drink. - Continue WAM protocol and Ativan taper. - Lengthy conversation with patient and family members at bedside - my recommendation is for inpatient rehab after he completes his detox. - SW consult requested. (2) Seizure Comment: - Recurrent, but in the setting of ETOH withdrawal. - Neuro input appreciated - CT and MRI brain reviewed. EEG showed benzodiazepine effects but no epileptiform discharges. As long as he doesn't have further recurrence, would not recommend antiepileptic drugs for now. - Seizure precautions. (3) Hyponatremia Comment: - Secondary to ETOH - resolved. (4) DVT prophylaxis Comment: - SCD. (5) Full code status Status and Disposition: Inpatient. Father updated at bedside.
[2019-07-05] MEDS: Multivitamins/Minerals TAB PO SCH (09:05)
[2019-07-05] MEDS: Thiamine TAB* 100 MG TAB PO SCH (09:05)
[2019-07-05] MEDS: Folic Acid TAB* 1 MG PO SCH (09:05)
[2019-07-05] MEDS: LORazepam TAB(*) 1 MG PO SCH (11:23)
--- NOTE | 2019-07-05 15:33 | PN ---
Subjective Date of Service: 07/05/19 Interval History: HOSPITALIST PROGRESS NOTE Patient seen and examined at bedside. Care reviewed and d/w Lala Ramirez RN. He is in good spirits today. Offers no complaints and optimistic about going to rehab. Family History: Unchanged from Admission Social History: Unchanged from Admission Past Medical History: Unchanged from Admission Objective Active Medications: Acetaminophen (Tylenol Tab*) 650 mg PO Q4H PRN PRN Reason: MILD PAIN or TEMP > 100.4 Folic Acid (Folvite Tab*) 1 mg PO DAILY [facility] Last Admin: 07/05/19 09:05 Dose: 1 mg Lorazepam (Ativan Tab(*)) 0 - 6 mg PO .PER [facility] PROTOCOL [facility]; Protocol Last Admin: 07/02/19 22:39 Dose: 4 mg Multivitamins/Minerals (Theragran/Minerals Tab*) 1 tab PO DAILY [facility] Last Admin: 07/05/19 09:05 Dose: 1 tab Thiamine HCl (Vitamin B-1 Tab*) 100 mg PO DAILY [facility] Last Admin: 07/05/19 09:05 Dose: 100 mg Vital Signs - 8 hr 07/05/19 07/05/19 07/05/19 08:00 11:15 11:23 Temperature 97.8 F Pulse Rate 87 Respiratory 18 18 18 Rate Blood Pressure 147/89 (mmHg) O2 Sat by Pulse 100 Oximetry Oxygen Devices in Use Now: None Appearance: Pleasant young gentleman sitting up in bed in NAD Eyes: No Scleral Icterus Ears/Nose/Mouth/Throat: Mucous Membranes Moist Neck: Trachea Midline Respiratory: Symmetrical Chest Expansion and Respiratory Effort, Clear to Auscultation Cardiovascular: NL Sounds; No Murmurs; No JVD, RRR Abdominal: NL Sounds; No Tenderness; No Distention Neurological: Alert and Oriented x 3, NL Muscle Strength and Tone Result Diagrams: 07/03/19 05:53 07/03/19 05:53 Assess/Plan/Problems-Billing Assessment: Mr Casas is a 34yo M with PMH of ETOH abuse, who presented to ED after a seizure at home; had another seizure in the ED, suspected to be ETOH withdrawal seizure. - Patient Problems (1) Alcohol withdrawal Comment: - Patient drinks 4-5 16oz beers/day, plus tequila shots. - Had a seizure in March thought to be secondary to withdrawal, but he unfortunately continued to drink. - Continue WAM protocol and Ativan taper. - Lengthy conversation with patient and family members at bedside - my recommendation is for inpatient rehab after he completes his detox. - SW consult requested. (2) Seizure Comment: - Recurrent, but in the setting of ETOH withdrawal. - Neuro input appreciated - CT and MRI brain reviewed. EEG showed benzodiazepine effects but no epileptiform discharges. As long as he doesn't have further recurrence, would not recommend antiepileptic drugs for now. - Seizure precautions. (3) Hyponatremia Comment: - Secondary to ETOH - resolved. (4) DVT prophylaxis Comment: - SCD. (5) Full code status Status and Disposition: Inpatient. Anticipate d/c in AM if rehab bed available.
[2019-07-05] MEDS ORDERED: cloNIDine TAB* 0.1 MG PO ONE (16:46)
--- NOTE | 2019-07-05 21:47 | DS ---
CC: Dr. Jorje Kaba; Dr. Kathy Whitman at the [facility]; Dr. Krishnamurthy * DISCHARGE SUMMARY: DATE OF ADMISSION: 07/02/19 ANTICIPATED DATE OF DISCHARGE: 07/06/19 DISCHARGE DIAGNOSIS: Alcohol withdrawal seizure. MEDICATION LIST: 1. Acetaminophen 650 mg p.o. q.4 hours p.r.n. pain or fever. 2. Folic acid 1 mg p.o. daily. 3. Multivitamin 1 tablet p.o. daily. 4. Thiamine 100 mg p.o. daily. HOSPITAL COURSE: Mr. Casas is a 34-year-old male with a past medical history of alcohol abuse who presented to the emergency room on 07/02/19 after having a fall that was later on clarified to being a witnessed seizure. He sustained facial ulcerations, and while in the emergency room, he had another seizure. The patient had had a prior ED visit in March with a similar episode. In the emergency room, he had a CT of the brain without contrast that showed no acute intracranial pathology. Maxillofacial CT showed no facial fracture and the patient was admitted for further workup. There was concern that maybe the patient had a primary epilepsy or he was having a recurrent alcohol withdrawal seizure. He was seen in consultation by Neurology (Dr. Krishnamurthy), who recommended an MRI of the brain and EEG for workup completion. 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 EEG was read as abnormal EEG due to excessive beta rhythms consistent with benzodiazepine drug effect, but no epileptiform features to this recording. Dr. Krishnamurthy's impression was that the patient's seizure were likely withdrawal related. He felt that the mild Dandy-Walker like abnormality on his MRI is not contributing to any of his seizures. He received education about seizure restrictions including avoidance of heights; avoidance of heavy machinery;to avoid swimming alone, baths, and to only take showers; stay away from open flames; and he made the patient aware that he is not able to drive at this point. Dr. Krishnamurthy was also in agreement with the recommendation for rehab in a facility after the patient completing his detox in the hospital. He will follow up the patient as outpatient after he completes his inpatient rehab program. The patient had no further seizures while in the hospital and he completed his Ativan taper. His withdrawal appears to be resolved at this time and he is optimistic and interested in going to inpatient rehab. No facilities are available at this time, but as they become available, this discharge summary will be updated. PHYSICAL EXAMINATION: Vital Signs: Temperature 97.8, heart rate 87, respiratory rate 18, oxygen saturation 100% on room air, blood pressure is 147/ 89. General: The patient is a pleasant young gentleman, sitting up in bed, in no acute distress. CVS: Normal S1, S2, regular rate and rhythm. Chest: Breath sounds present bilaterally with no added sounds. Abdomen is soft. Bowel sounds are present. Extremities: No edema. Neuro: He is alert and oriented x3. Able to move all 4 extremities. DIET: Regular diet. ACTIVITY: As tolerated. DISPOSITION: To inpatient rehab facility. STATUS WHILE IN THE HOSPITAL: Inpatient. CONDITION AT THE TIME OF DISCHARGE: Fair. Please keep in mind, this is a summarized version of this patient's hospital stay. If you need more information, please feel free to call me at [phone] or please obtain full medical records. TIME SPENT: Approximately 45 minutes was spent to complete this discharge. [id number]/[facility] #: [id number] [facility]
[2019-07-06] MEDS: Thiamine TAB* 100 MG TAB PO SCH (07:42)
[2019-07-06] MEDS: Multivitamins/Minerals TAB PO SCH (07:42)
[2019-07-06] MEDS: Folic Acid TAB* 1 MG PO SCH (07:42)
--- NOTE | 2019-07-06 12:54 | PN ---
Subjective Date of Service: 07/06/19 Interval History: No c/o except suture on lipio bothering him. Slept well. Family History: Unchanged from Admission Social History: Unchanged from Admission Past Medical History: Unchanged from Admission Objective Active Medications: Acetaminophen (Tylenol Tab*) 650 mg PO Q4H PRN PRN Reason: MILD PAIN or TEMP > 100.4 Chlordiazepoxide (Librium Cap*) 25 mg PO BID [facility] Folic Acid (Folvite Tab*) 1 mg PO DAILY [facility] Last Admin: 07/06/19 07:42 Dose: 1 mg Multivitamins/Minerals (Theragran/Minerals Tab*) 1 tab PO DAILY [facility] Last Admin: 07/06/19 07:42 Dose: 1 tab Thiamine HCl (Vitamin B-1 Tab*) 100 mg PO DAILY [facility] Last Admin: 07/06/19 07:42 Dose: 100 mg Vital Signs - 8 hr 07/06/19 07/06/19 07/06/19 07:15 07:53 08:00 Temperature 97.5 F Pulse Rate 80 Respiratory 16 16 16 Rate Blood Pressure 146/92 (mmHg) O2 Sat by Pulse 100 Oximetry 07/06/19 11:15 Temperature 97.6 F Pulse Rate 76 Respiratory 18 Rate Blood Pressure 153/88 (mmHg) O2 Sat by Pulse 100 Oximetry Oxygen Devices in Use Now: None Appearance: Alert, sitting on the edge of his bed. In good spirits. Looks comfortable. Eyes: No Scleral Icterus Extremities: No Edema, No Clubbing, Cyanosis, - Skin: No Rash or Ulcers, No Nodules or Sclerosis, - - Suture line L forehead. Suture inside L upper lip. Neurological: Alert and Oriented x 3, NL Sensation - no tremor. Result Diagrams: 07/03/19 05:53 07/03/19 05:53 Additional Lab and Data: Lab Results 07/02/19 07/02/19 Range/Units 14:56 14:56 WBC 7.1 (3.5-10.8) 10^3/uL RBC 4.40 (4.18-5.48) 10^6 /uL Hgb 14.8 (14.0-18.0) g/dL Hct 43 (42-52) % MCV 98 H (80-94) fL MCH 34 H (27-31) pg MCHC 35 (31-36) g/dL RDW 14 (10-15) % Plt Count 199 (150-450) 10^3/uL MPV 8.7 (7.4-10.4) fL Neut % (Auto) 74.9 % Lymph % (Auto) 5.9 % [place] % (Auto) 18.2 % Eos % (Auto) 0.2 % Baso % (Auto) 0.8 % Absolute Neuts (auto) 5.3 (1.5-7.7) 10^3/ul Absolute Lymphs (auto) 0.4 L (1.0-4.8) 10^3/ul Absolute Monos (auto) 1.3 H (0-0.8) 10^3/ul Absolute Eos (auto) 0.0 (0-0.6) 10^3/ul Absolute Basos (auto) 0.1 (0-0.2) 10^3/ul Absolute Nucleated RBC 0.0 10^3/ul Nucleated RBC % 0.0 Sodium 132 L (135-145) mmol/L Potassium 3.9 (3.5-5.0) mmol/L Chloride 97 L (101-111) mmol/L Carbon Dioxide 25 (22-32) mmol/L Anion Gap 10 (2-11) mmol/L BUN 8 (6-24) mg/dL Creatinine 0.66 L (0.67-1.17) mg/dL Est GFR ( Amer) 168.2 (>60) Est GFR (Non-Af Amer) 139.0 (>60) BUN/Creatinine Ratio 12.1 (8-20) Glucose 103 H (70-100) mg/dL Calcium 10.0 (8.6-10.3) mg/dL Magnesium 2.0 (1.9-2.7) mg/dL Total Bilirubin 0.60 (0.2-1.0) mg/dL AST 60 H (13-39) U/L ALT 78 H (7-52) U/L Alkaline Phosphatase 56 (34-104) U/L Total Protein 8.3 (6.4-8.9) g/dL Albumin 5.0 (3.2-5.2) g/dL Globulin 3.3 (2-4) g/dL Albumin/Globulin Ratio 1.5 (1-3) Serum Alcohol 19 H (<10) mg/dL Assess/Plan/Problems-Billing Assessment: Mr Casas is a 34yo M with PMH of ETOH abuse, who presented to ED after a seizure at home; had another seizure in the ED, suspected to be ETOH withdrawal seizure. - Patient Problems (1) Alcohol withdrawal Current Visit: Yes Status: Acute Code(s): F10.239 - ALCOHOL DEPENDENCE WITH WITHDRAWAL, UNSPECIFIED SNOMED Code(s): 217264528 Comment: - Patient drinks 4-5 16oz beers/day, plus tequila shots. - Had a seizure in March thought to be secondary to withdrawal, but he unfortunately continued to drink. Seizure observed in ED 07/02/19. Awaiting bed for inpatient rehab after he completes his detox. - SW consult appreciated. (2) Seizure Current Visit: Yes Status: Acute Code(s): R56.9 - UNSPECIFIED CONVULSIONS SNOMED Code(s): 32604527 Comment: - Recurrent, but in the setting of ETOH withdrawal. - Neuro input appreciated - CT and MRI brain reviewed. EEG showed benzodiazepine effects but no epileptiform discharges. As long as he doesn't have further recurrence, would not recommend antiepileptic drugs for now. - Seizure precautions. Chlordiazepoxide plan ? only 3 doses to ensure seizure- free detox period. (3) Alcoholic liver damage Current Visit: Yes Status: Acute Code(s): K70.9 - ALCOHOLIC LIVER DISEASE, UNSPECIFIED SNOMED Code(s): 80316429 Comment: Repeat LFT's 07/07/19. Status and Disposition: Inpatient. Anticipate d/c in AM if rehab bed available.
[2019-07-06] MEDS: chlordiazePOXIDE CAP* 25 MG PO SCH ×2 (12:57→21:39)
[2019-07-07 06:56] LABS: Albumin 4.6 g/dL (3.2-5.2); Albumin/Globulin Ratio 1.3 (1-3); Globulin 3.5 g/dL (2-4); Indirect Bilirubin 0.6 mg/dL (0.3-1.0); Total Bilirubin 0.8 mg/dL (0.2-1.0); Total Protein 8.1 g/dL (6.4-8.9)
[2019-07-07] MEDS: chlordiazePOXIDE CAP* 25 MG PO SCH ×2 (08:56→21:16)
[2019-07-07] MEDS: Multivitamins/Minerals TAB PO SCH (08:56)
[2019-07-07] MEDS: Folic Acid TAB* 1 MG PO SCH (08:56)
[2019-07-07] MEDS: Thiamine TAB* 100 MG TAB PO SCH (08:57)
--- NOTE | 2019-07-07 09:28 | PN ---
Subjective Date of Service: 07/07/19 Interval History: No c/o. Family History: Unchanged from Admission Social History: Unchanged from Admission Past Medical History: Unchanged from Admission Objective Active Medications: Acetaminophen (Tylenol Tab*) 650 mg PO Q4H PRN PRN Reason: MILD PAIN or TEMP > 100.4 Chlordiazepoxide (Librium Cap*) [address] [facility] Last Admin: 07/07/19 08:56 Dose: 25 mg Folic Acid (Folvite Tab*) [address] [facility] Last Admin: 07/07/19 08:56 Dose: 1 mg Multivitamins/Minerals (Theragran/Minerals Tab*) [address] [facility] Last Admin: 07/07/19 08:56 Dose: 1 tab Thiamine HCl (Vitamin B-1 Tab*) [address] [facility] Last Admin: 07/07/19 08:57 Dose: 100 mg Vital Signs - 8 hr 07/07/19 07/07/19 07/07/19 02:53 07:15 08:56 Temperature 97.6 F 98.2 F Pulse Rate 65 70 Respiratory 16 20 18 Rate Blood Pressure 140/93 151/92 (mmHg) O2 Sat by Pulse 100 100 Oximetry Oxygen Devices in Use Now: None Appearance: Alert, walks freely in his room. In good spirits, looks comfortable. Extremities: No Edema, No Clubbing, Cyanosis, - Skin: No Rash or Ulcers, No Nodules or Sclerosis, - Neurological: Alert and Oriented x 3, NL Sensation - No tremor, NL Gait Result Diagrams: 07/03/19 05:53 07/03/19 05:53 Additional Lab and Data: Lab Results 07/02/19 07/02/19 Range/Units 14:56 14:56 WBC 7.1 (3.5-10.8) 10^3/uL RBC 4.40 (4.18-5.48) 10^6 /uL Hgb 14.8 (14.0-18.0) g/dL Hct 43 (42-52) % MCV 98 H (80-94) fL MCH 34 H (27-31) pg MCHC 35 (31-36) g/dL RDW 14 (10-15) % Plt Count 199 (150-450) 10^3/uL MPV 8.7 (7.4-10.4) fL Neut % (Auto) 74.9 % Lymph % (Auto) 5.9 % [place] % (Auto) 18.2 % Eos % (Auto) 0.2 % Baso % (Auto) 0.8 % Absolute Neuts (auto) 5.3 (1.5-7.7) 10^3/ul Absolute Lymphs (auto) 0.4 L (1.0-4.8) 10^3/ul Absolute Monos (auto) 1.3 H (0-0.8) 10^3/ul Absolute Eos (auto) 0.0 (0-0.6) 10^3/ul Absolute Basos (auto) 0.1 (0-0.2) 10^3/ul Absolute Nucleated RBC 0.0 10^3/ul Nucleated RBC % 0.0 Sodium 132 L (135-145) mmol/L Potassium 3.9 (3.5-5.0) mmol/L Chloride 97 L (101-111) mmol/L Carbon Dioxide 25 (22-32) mmol/L Anion Gap 10 (2-11) mmol/L BUN 8 (6-24) mg/dL Creatinine 0.66 L (0.67-1.17) mg/dL Est GFR ( Amer) 168.2 (>60) Est GFR (Non-Af Amer) 139.0 (>60) BUN/Creatinine Ratio 12.1 (8-20) Glucose 103 H (70-100) mg/dL Calcium 10.0 (8.6-10.3) mg/dL Magnesium 2.0 (1.9-2.7) mg/dL Total Bilirubin 0.60 (0.2-1.0) mg/dL AST 60 H (13-39) U/L ALT 78 H (7-52) U/L Alkaline Phosphatase 56 (34-104) U/L Total Protein 8.3 (6.4-8.9) g/dL Albumin 5.0 (3.2-5.2) g/dL Globulin 3.3 (2-4) g/dL Albumin/Globulin Ratio 1.5 (1-3) Serum Alcohol 19 H (<10) mg/dL Assess/Plan/Problems-Billing Assessment: Mr Casas is a 34yo M with PMH of ETOH abuse, who presented to ED after a seizure at home; had another seizure in the ED, suspected to be ETOH withdrawal seizure. - Patient Problems (1) Alcohol withdrawal Current Visit: Yes Status: Acute Code(s): F10.239 - ALCOHOL DEPENDENCE WITH WITHDRAWAL, UNSPECIFIED SNOMED Code(s): 399838894 Comment: - Patient drinks 4-5 16oz beers/day, plus tequila shots. - Had a seizure in March thought to be secondary to withdrawal, but he unfortunately continued to drink. Seizure observed in ED 07/02/19. Awaiting bed for inpatient rehab. - SW consult appreciated. (2) Seizure Current Visit: Yes Status: Acute Code(s): R56.9 - UNSPECIFIED CONVULSIONS SNOMED Code(s): 19940010 Comment: - Recurrent, but in the setting of ETOH withdrawal. - Neuro input appreciated - CT and MRI brain reviewed. EEG showed benzodiazepine effects but no epileptiform discharges. As long as he doesn't have further recurrence, would not recommend antiepileptic drugs for now. - Seizure precautions. Tolerating chlordiazepoxide well. (3) Alcoholic liver damage Current Visit: Yes Status: Acute Code(s): K70.9 - ALCOHOLIC LIVER DISEASE, UNSPECIFIED SNOMED Code(s): 98567703 Comment: Repeat LFT's 07/07/19 show higher transaminases. Need further fup and INR. Status and Disposition: Inpatient. Anticipate d/c in AM if rehab bed available.
[2019-07-08 07:56] VITALS: BP 132/85
== END 2019-07-08 08:15 | DRG 897 ==
LOC: ED 12:52 → MED 18:01
PROVIDERS: ADMIT Internal Medicine; ATTEND Internal Medicine
PROC: 0HQ1XZZ Repair Face Skin, External Approach (ICD-10-PCS; principal; 2019-07-02)
PROC: 09QKXZZ Repair Nasal Mucosa and Soft Tissue, External Approach (ICD-10-PCS; 2019-07-02)
PROC: 4A00X4Z Measurement of Central Nervous Electrical Activity, External Approach (ICD-10-PCS; 2019-07-03)
DX: F10.239 Alcohol dependence with withdrawal, unspecified (principal); E87.1 Hypo-osmolality and hyponatremia; G40.89 Other seizures; Y90.1 Blood alcohol level of 20-39 mg/100 ml; S01.81XA Laceration without foreign body of other part of head, initial encounter; S01.21XA Laceration without foreign body of nose, initial encounter; S01.511A Laceration without foreign body of lip, initial encounter; F17.210 Nicotine dependence, cigarettes, uncomplicated; K70.9 Alcoholic liver disease, unspecified; W17.89XA Other fall from one level to another, initial encounter; Y92.9 Unspecified place or not applicable
CPT/HCPCS: 36415; 70450; 70486; 70551; 80048; 80053; 80076; 80320; 83735; 85025; 90686; 95816; 99284; A9270-GY; G0480; J2250; J3360; J3411